=== PATIENT | female | born 1990 | race African-American/Black ===

== ENCOUNTER 2025-04-27 12:47 | Outpatient (REF) | payer OTHER, SELFPAY ==
[2025-04-28 07:38] LABS: Follicle Stimulating Hormone 1.8 mIU/mL
[2025-05-01 15:13] LABS: Testosterone, Free 6.0 pg/mL (0.1-6.4)
[2025-05-02 09:39] LABS: Estradiol Ultra Sensitive 345 pg/mL
== END 2025-04-27 12:48 | disposition home or self-care (01) ==
LOC: HO.LAB 12:47
PROVIDERS: Visit Provider Student in an Organized Health Care Education/Training Program
DX: N91.1 Secondary amenorrhea (principal); L68.0 Hirsutism; R79.89 Other specified abnormal findings of blood chemistry; Z32.00 Encounter for pregnancy test, result unknown
CPT/HCPCS: 36415; 82627; 82670; 83001; 83002; 83498; 84146; 84402; 84403; 84443; 84702; 99202

== ENCOUNTER 2025-04-27 12:47 | Outpatient (AMB) | payer OTHER, SELFPAY ==
--- OUTSIDE RECORDS SUMMARY | 2018-07-05 09:24 | XMS_ITS | Continuity of Care Document ---
Author Organization [facility] Address [address] [place] [address] Phone Care Team Providers Care Statistician Mathematical Name Role Phone John SOLIS Arsen Unavailable Unavailable Procedures Procedure Date RPR GC BY DNA AMP CT BY DNA AMP Advance Directives Directive Yes / No Effective Date File Name No Information Encounters Encounter Description Practice Location Reason(s) For Visit Diagnoses Date Provider Providers Copied on Encounter [facility] , [address] [place], [place], [id number], tel:[phone] [facility] Lab - [facility] Encounter for screening for infections with predominantly sexual mode of transmission John Thornton. [address] [place], [place], [id number], . tel:[phone] Family History Family Member Type Diagnosis Age At Onset No Information Payers Payer name Insurance type Covered alliance party ID Authoriza tion(s) No Information Social [...]
[2025-04-27 12:50] VITALS: BP 106/62; PULSE 81; O2SAT 99; BMI 28.5
--- NOTE | 2025-04-27 12:50 | A.OFFVIS_ITS ---
Vital Signs 3 04/27/25 12:50 Height 5 ft 3 in Weight 160 lb 14.999 oz BMI 28.5 BP 106/62 Position Sitting Pulse 81 Pulse Source Pulse Oximeter Pulse Oximetry (%) 99 Oxygen Delivery Method Room Air Intake Visit Reasons: Elevated testosterone Intake Note: New patient present today for Elevated testosterone office visit. L Inspector Process Required: No Accompanied by: Self / Same As Patient Allergies No Known Allergies Allergy (Verified 04/27/25 12:51) Medication List - Last Reconciled 04/27/25 by Galina Beth MD valacyclovir 500 mg PO BID PRN HPI Comments Details: 35-year-old female here today for initial evaluation of secondary amenorrhea and elevated testosterone levels. Describes she has always has irregular periods since high school 2007 Periods every 3 to 6 months , 2-3 cycles per month Does complain of excessive hair on face, no voice changes, no clitoromegaly presents with no complaints of hirsutism, hair loss in temples . currently on acne She has a history hyperlipidemia, no HTN or prediabetes. PCOS is described as mild, moderate or severe. Menarche:15 LMP: November or December 2024 history:no Normal pubertal milestones of pubarche and thelarche Not currently sexually active, has a boyfriend. 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 Never smoker Alcohol : never Drug use : never Physical exam General: sitting comfortably in no acute distress HEENT: normocephalic/atraumatic, Neck: supple, symmetrical, no thyromegaly , no dorsocervical or supraclavicular fat pads Cardiac: normal heart sounds Pulm: normal breath sounds B/L, no added breath sounds Abd: not distended, no tenderness Extremities: no edema, no signs of myxedema [facility] Medical History (Updated 04/27/25 @ 13:43 by Galina Beth MD) Elevated testosterone level in female Secondary amenorrhea Surgical History (Updated 04/24/25 @ 12:27 by KESHA Gloria) No pertinent past surgical history Family History (Updated 04/27/25 @ 12:52 by KESHA Engel) Father No problems noted. Mother Family history of high blood pressure Social History (Updated 04/24/25 @ 12:29 by KESHA Gloria) Alcohol intake: never Patient Tobacco Use Status: Never used Tobacco Physical Exam Vital Signs: Last Vital Signs Pulse 81 04/27/25 12:50 BP 106/62 04/27/25 12:50 Pulse Ox 99 04/27/25 12:50 Oxygen Delivery Method Room Air 04/27/25 12:50 BMI result Body Mass Index 28.5 Assessment & Plan Assessment & Plan (1) Secondary amenorrhea: Code(s): N91.1 - Secondary amenorrhea Category: Medical Plan: 35-year-old female coming in today for initial evaluation of secondary amenorrhea and elevated testosterone levels. Labs from December 2024 showed testosterone of 118 ng/dL, normal thyroid function, normal estradiol, FSH and LH. She has had no periods for the last 4-5 months, last period was in November or December 2024. Reports irregular periods since menarche/high school. She only has 2-3 cycles per year without oral contraceptive pills. Was on oral contraceptive pills from 3855-3198 which regulated her periods. She reports mood changes with the OCPs and is not excited about going back on them. I discussed with the patient that 1st we will evaluate her secondary amenorrhea/irregular periods with some further testing including test, prolactin levels, we will repeat FSH, LH, estradiol and TSH, we will also order a pelvic ultrasound. We will also check 17 hydroxyprogesterone levels to rule out CAH. At this point given normal breast development and uterus present given prior history of pre records, most common differentials include PCOS, hypothermic dysfunction, ovarian failure, pituitary dysfunction, hypothalamic dysfunction., . She denies currently being sexually active but we will check a test. She is doing a healthy amount of exercise, nothing excessive, no excessive stressors to suggest hypothalamic dysfunction. FSH and LH on labs from December 2024 were not elevated enough to suggest ovarian failure plus estradiol was also normal. No prolactin levels checked, could potentially have pituitary etiology, we will check prolactin levels. Most common reason for irregular menstruation, signs of hyperandrogenism lead to PCOS, however this is a diagnosis of exclusion. Once we have done the above workup, if she does necktie turner to have PCOS. I reviewed with the patient the implications of polycystic ovarian syndrome in terms of 1) reproductive health (increased risk of infertity, miscarriage), 2) metabolic issues (type 2 diabetes, hypertension, dyslipidemia, cardiovascular disease) and 3) hyperandrogenism (acne, hirsuitism, male pattern hair loss). We reviewed that weight loss in overweight woman can help improve these morbidities, but often woman with PCOS do need further assistance with fertility using metformin plus clomiphene or letrazole. She is not interested in at this time. She is not bothered by excessive facial hair, had discuss with her briefly that is spironolactone could be an option in the future but for now she is okay with maintaining her cosmetic measures. She has a history of hyperlipidemia, no history of hypertension or diabetes, discussed with her importance of maintaining good diet with lean protein and less fats. We discussed importance of maintaining weight loss measures, she is doing very well in terms of maintaining good exercise regimen. We will focus more on this in the following visits if she turns out to have PCOS. I also discuss with the her that women with PCOS need regulation of the menstrual cycles as it is important to have a menstrual cycle at least every 3 months to prevent endometrial hyperplasia and risk of endometrial cancer. She is not very excited about the idea of going back on oral contraceptive pills. I will place OBGYN referral for them to discuss further measures with her. We can also consider putting her on metformin to see if it helps with regulating her periods. Plan: -OBGYN referral placed -ordered FSH, LH, estradiol, TSH with reflex free T4, 17 hydroxyprogesterone levels, prolactin levels, test, testosterone levels -ordered ultrasound of the pelvis transvaginal -follow up in 6 weeks to discuss results (2) Elevated testosterone level in female: Code(s): R79.89 - Other specified abnormal findings of blood chemistry Category: Medical Plan: See above Plan I spent 45 minutes in reviewing the record, seeing the patient and documenting in the medical record. Orders: Orders 2 Prolactin Today L68.0 - Hirsutism, N91.1 - Secondary amenorrhea DHEA Sulfate Today L68.0 - Hirsutism, N91.1 - Secondary amenorrhea US pelvic and transvaginal Today L68.0 - Hirsutism, N91.1 - Secondary amenorrhea Testosterone, Free/Total Today L68.0 - Hirsutism, N91.1 - Secondary amenorrhea HCG Quantitative Today N91.1 - Secondary amenorrhea Lutenizing Hormone Today N91.1 - Secondary amenorrhea 17 Hydroxyprogesterone Today L68.0 - Hirsutism, N91.1 - Secondary amenorrhea TSH reflex Free T4 Today N91.1 - Secondary amenorrhea Follicle Stimulating Hormone Today N91.1 - Secondary amenorrhea Estradiol Ultra Sensitive Today N91.1 - Secondary amenorrhea Referrals 2 GLASS SILVERER Referral N91.1 - Secondary amenorrhea Patient Instructions: do blood work Do ultrasound pelvis Referral to obgyn placed Continue maintaining active exercise regimen Coding Level of Care Code New Pt Level 4 (62725) Diagnoses Secondary amenorrhea N91.1 Elevated testosterone level in female R79.89 Time Spent (min) 45
== END 2025-04-27 13:32 | disposition home or self-care (01) ==
LOC: HO.ENCR 12:48
PROVIDERS: Visit Provider Student in an Organized Health Care Education/Training Program
DX: N91.1 Secondary amenorrhea (principal); R79.89 Other specified abnormal findings of blood chemistry
CPT/HCPCS: 99204

== ENCOUNTER 2025-05-07 07:41 | Outpatient (REF) | payer OTHER, SELFPAY ==
[2025-05-07 09:02] LABS: Anion Gap 8 (12-20); Blood Urea Nitrogen 12 mg/dL (9-16); Calcium 9.1 mg/dL (8.4-10.2); Carbon Dioxide 24 mmol/L (22-29); Chloride 112 mmol/L (96-108); Estimated Glomerular Filt Rate > 60; Potassium 4.0 mmol/L (3.3-5.1); Sodium 140 mmol/L (135-145)
[2025-05-15 01:05] LABS: 11-Deoxycortisol, LC/MS <20 ng/dL
== END 2025-05-07 07:42 | disposition home or self-care (01) ==
LOC: HO.LAB 07:41
PROVIDERS: PCP Registered Nurse; Visit Provider Student in an Organized Health Care Education/Training Program
DX: N91.1 Secondary amenorrhea (principal); R79.89 Other specified abnormal findings of blood chemistry
CPT/HCPCS: 36415; 80048; 82024; 82088; 82157; 82533; 82627; 82634; 83498; 84244

== ENCOUNTER 2025-07-02 16:30 | Outpatient (REF) | payer OTHER, SELFPAY ==
--- OUTSIDE RECORDS SUMMARY | 2018-07-05 08:24 | XMS_ITS | Continuity of Care Document ---
Author Organization [facility] Address [address] [place] [address] Phone Care Team Providers Care Data Technical Lead Name Role Phone John SOLIS Arsen Unavailable Unavailable Procedures Procedure Date RPR GC BY DNA AMP CT BY DNA AMP Advance Directives Directive Yes / No Effective Date File Name No Information Encounters Encounter Description Practice Location Reason(s) For Visit Diagnoses Date Provider Providers Copied on Encounter [facility] , [address] [place], [place], [id number], tel:[phone] [facility] Lab - [facility] Encounter for screening for infections with predominantly sexual mode of transmission John Thornton. [address] [place], [place], [id number], . tel:[phone] Family History Family Member Type Diagnosis Age At Onset No Information Payers Payer name Insurance type Covered constitution party ID Authoriza tion(s) No Information Social History Type Description Quantity Date Captured Comments Sex Female Smoking Status No Information Chief Complaint And Reason For Visit No Information Reason For Referral Reason For Referral No Information Plan Of Treatment Date Type Action Status Future Order: Lab Order RPR W/re flex FTA (RPRREFLEX), Appointment on: Ordered Future Order: Lab Order Gonorrhe a NAAT (Amp) (GONRHEA), Appointment on: Ordered Future Order: Lab Order Chlamydi a NAAT (CHLAMP), Appointment on: Ordered History Of Present Illness Encounter Date Complaint History Of Prese nt Illness No Information Functional Status Date Functional Assessmen t No Information Instructions Date Instruction Additional Infor mation No Information Assessments Type Assessment Date assessment Encounter for screen ing for infections with predominantly sexual mode of transmission Patient Care Teams Name Effective Dates (start - stop) Status Members No Information
--- NOTE | ~2025-07-02 | US_ITS ---
EXAMINATION: US PELVIS CLINICAL INFORMATION: Hirsutism COMPARISON: None available. TECHNIQUE: Ultrasound of the pelvis is performed using both transabdominal and transvaginal transducers along with Doppler. Transvaginal imaging is performed due to inadequate visualization transabdominally. FINDINGS: Uterus: The uterus is anteverted and measures 10.5 x 4.0 x 4.4 cm. Small amount of free fluid is present. The double wall endometrial thickness is 9 mm. The uterus is smooth in contour and has normal myometrial echogenicity. No visible fibroid. Adnexa: Both ovaries are visualized. There is normal color flow to the adnexa. There is no ovarian torsion. There is no pelvic ascites or fluid collection. Right ovary measures 3.0 x 2.4 x 1.5 cm. Numerous small peripheral follicles are present. Left ovary measures 3.6 x 2.1 x 2.0 cm. Small peripheral follicles are present. US/US pelvic and transvaginal IMPRESSION: Small peripheral follicles are present in the ovaries. However, the ovaries are not enlarged. The finding is nonspecific. There is a physiologic volume of free fluid in the cul-de-sac. Electronically signed by: Dale Mullins MD 07/02/2025 05:00 PM EST
== END 2025-07-02 16:31 | disposition home or self-care (01) ==
LOC: HO.US 16:30
PROVIDERS: Visit Provider Student in an Organized Health Care Education/Training Program
DX: L68.0 Hirsutism (principal); N91.1 Secondary amenorrhea
CPT/HCPCS: 76830; 76856

== ENCOUNTER → 2025-07-02 16:34 | Outpatient (BNV) | payer OTHER, SELFPAY | PROVIDERS: Visit Provider Radiology Diagnostic Radiology | DX: N83.02 Follicular cyst of left ovary (principal); N83.01 Follicular cyst of right ovary | CPT/HCPCS: 76830; 76856 ==

== ENCOUNTER 2025-07-07 12:44 | Outpatient (AMB) | payer OTHER, SELFPAY ==
--- NOTE | 2025-07-07 12:47 | A.OFFVIS_ITS ---
Vital Signs 07/07/25 13:00 Height 5 ft 3 in Weight 160 lb 14.999 oz BMI 28.5 BP 100/60 Blood Pressure Location Rt brachial Position Sitting Pulse 99 Pulse Source Pulse Oximeter Pulse Oximetry (%) 81 L Oxygen Delivery Method Room Air Intake Visit Reasons: Secondary amenorrhea Intake Note: Patient presents here today for a follow-up on Secondary Amenorrhea: Patient last seen by DR Galina Beth MD * Pelvic Transvaginal Ultrasound: Completed on 07/02/2025 * Endocrine Hormone Panel Blood Work: Completed on 04/27/2025 Steam Setter Required: No Accompanied by: Self / Same As Patient Allergies No Known Allergies Allergy (Verified 07/07/25 12:48) Medication List - Last Reconciled 07/07/25 by Madhuri Boyle MD semaglutide (weight loss) (Wegovy) 0.25 mg (0.5 mL) subcut QWEEK valacyclovir 500 mg PO BID PRN HPI Comments Details: 35-year-old female here today for initial evaluation of secondary amenorrhea and elevated testosterone levels. Describes she has always has irregular periods since high school 2007 Periods every 3 to 6 months , 2-3 cycles per month Does complain of excessive hair on face, no voice changes, no clitoromegaly presents with no complaints of hirsutism, hair loss in temples . currently on acne She has a history hyperlipidemia, no HTN or prediabetes. PCOS is described as mild, moderate or severe. Menarche:15 LMP: November or December 2024 history:no Normal pubertal milestones of pubarche and thelarche Not currently sexually active, has a boyfriend. 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 She reports having a period April and May, fairly similar to her normal periods. She has increased physical activity, and eats fairly healthy (only 1 meal a day) She is not actively looking from , but she would be OK it is happens Labs Laboratory Tests 04/27/25 05/07/25 14:06 08:05 Sodium 140 Potassium 4.0 Chloride 112 H Carbon Dioxide 24 Anion Gap 8 L BUN 12 Creatinine 0.86 Estimated GFR > 60 Random Glucose 95 Calcium 9.1 Renin 0.18 L Aldosterone 4 TSH 0.97 Estradiol Ultra LCMSMS 345 FSH 1.8 Luteinizing Hormone 5.4 Prolactin 9.1 Total Testosterone 89 H Fr Testosterone Dialys 6.0 Androstenedione 180 DHEA Sulfate 47 44 Beta HCG, Quant < 2 Random Cortisol 7.9 ACTH 20 11-Deoxycortisol LC-MS <20 17-Hydroxyprogesterone 62 Collection Date: 01/22/2025 Test Result Reference Interval Flag WBC (x10?/uL) 4.2 3.4 ? 10.8 RBC (x10?/uL) 4.16 3.77 ? 5.28 Hemoglobin (g/dL) 13.2 11.1 ? 15.9 Hematocrit (%) 39.3 34.0 ? 46.6 MCV (fL) 95 79 ? 97 MCH (pg) 31.7 26.6 ? 33.0 MCHC (g/dL) 33.6 31.5 ? 35.7 RDW (%) 12.2 11.7 ? 15.4 Platelets (x10?/uL) 293 150 ? 450 Neutrophils (%) 37 Lymphocytes (%) 49 Monocytes (%) 9 Eosinophils (%) 4 Basophils (%) 1 Absolute Neutrophils (x10?/uL) 1.6 1.4 ? 7.0 Absolute Lymphocytes (x10?/uL) 2.1 0.7 ? 3.1 NLR 0.8 0.0 ? 2.9 Comprehensive Metabolic Panel (CMP) Test Result Reference Interval Flag Glucose (mg/dL) 84 70 ? 99 BUN (mg/dL) 10 6 ? 20 Creatinine (mg/dL) 1.01 0.57 ? 1.00 High eGFR (mL/min/1.73m?) 74 >59 BUN/Creatinine Ratio 10 9 ? 23 Sodium (mmol/L) 142 134 ? 144 Potassium (mmol/L) 4.3 3.5 ? 5.2 Chloride (mmol/L) 108 96 ? 106 High CO?, Total (mmol/L) 21 20 ? 29 Calcium (mg/dL) 9.4 8.7 ? 10.2 Protein, Total (g/dL) 7.9 6.0 ? 8.5 Albumin (g/dL) 4.6 3.9 ? 4.9 Globulin, Total (g/dL) 3.3 1.5 ? 4.5 Bilirubin, Total (mg/dL) 1.0 0.0 ? 1.2 Alkaline Phosphatase (IU/L) 100 44 ? 121 AST (SGOT) (IU/L) 25 0 ? 40 ALT (SGPT) (IU/L) 17 0 ? 32 Hepatic Function Panel Test Result Reference Interval Flag Bilirubin, Direct (mg/dL) 0.28 0.00 ? 0.40 Lipid Panel Test Result Reference Interval Flag Cholesterol, Total (mg/dL) 207 100 ? 199 High Triglycerides (mg/dL) 45 0 ? 149 HDL Cholesterol (mg/dL) 70 >39 VLDL Cholesterol Enmanuel (mg/dL) 8 5 ? 40 LDL Chol Calc (NIH) (mg/dL) 129 0 ? 99 High Thyroid Panel With TSH Test Result Reference Interval Flag TSH (uIU/mL) 0.899 0.450 ? 4.500 Thyroxine (T4) (ug/dL) 6.7 4.5 ? 12.0 T3 Uptake (%) 27 24 ? 39 Free Thyroxine Index 1.8 1.2 ? 4.9 Vitamin B12 and Folate Test Result Reference Interval Flag Vitamin B12 (pg/mL) 622 232 ? 1245 Folate (Folic Acid), Serum (ng/mL) >20.0 >3.0 Hemoglobin A1c Test Result Reference Interval Flag Hemoglobin A1c (%) 5.1 4.8 ? 5.6 Hormonal Panel Test Result Reference Interval Flag DHEA, Serum (ng/dL) 230 31 ? 701 Testosterone (ng/dL) 118 8 ? 60 High LH (mIU/mL) 21.9 (Follicular: 2.4?12.6) High FSH (mIU/mL) 6.7 (Follicular: 3.5?12.5) Estradiol and Vitamin D Test Result Reference Interval Flag Estradiol (pg/mL) 60.4 (Follicular: 12.5?166.0; Luteal: 43.8?211.0) Vitamin D, 25-Hydroxy (ng/mL) 73.0 30.0 ? 100.0 Estrone and Ferritin Test Result Reference Interval Flag Estrone, Serum (pg/mL) 54 27 ? 231 Ferritin (ng/mL) 86 15 ? 150 Imaging: Pelvic ultrasound 07/02/2025 FINDINGS: Uterus: The uterus is anteverted and measures 10.5 x 4.0 x 4.4 cm. Small amount of free fluid is present. The double wall endometrial thickness is 9 mm. The uterus is smooth in contour and has normal myometrial echogenicity. No visible fibroid. Adnexa: Both ovaries are visualized. There is normal color flow to the adnexa. There is no ovarian torsion. There is no pelvic ascites or fluid collection. Right ovary measures 3.0 x 2.4 x 1.5 cm. Numerous small peripheral follicles are present. Left ovary measures 3.6 x 2.1 x 2.0 cm. Small peripheral follicles are present. IMPRESSION: Small peripheral follicles are present in the ovaries. However, the ovaries are not enlarged. The finding is nonspecific. There is a physiologic volume of free fluid in the cul-de-sac. [facility] Medical History Elevated testosterone level in female Secondary amenorrhea Surgical History No pertinent past surgical history Family History Father No problems noted. Mother Family history of high blood pressure Social History Alcohol intake: never Patient Tobacco Use Status: Never used Tobacco Physical Exam Vital Signs: Last Vital Signs Pulse 99 07/07/25 13:00 BP 100/60 07/07/25 13:00 Pulse Ox 81 L 07/07/25 13:00 Oxygen Delivery Method Room Air 07/07/25 13:00 BMI result Body Mass Index 28.5 Assessment & Plan Assessment & Plan (1) Elevated testosterone level in female: Code(s): R79.89 - Other specified abnormal findings of blood chemistry Category: Medical (2) Secondary amenorrhea: Code(s): N91.1 - Secondary amenorrhea Category: Medical Plan: 35-year-old female coming in today for initial evaluation of secondary amenorrhea and elevated testosterone levels. Labs from December 2024 showed testosterone of 118 ng/dL, normal thyroid function, normal estradiol, FSH and LH. She has had no periods for the last 4-5 months, last period was in November or December 2024. Reports irregular periods since menarche/high school. She only has 2-3 cycles per year without oral contraceptive pills. Was on oral contraceptive pills from 6460-3728 which regulated her periods. She reports mood changes with the OCPs and is not excited about going back on them. Her labs are consistent with hyperandrogenism, likely secondary to PCOS given menstrual irregularities and elevated testoterone levels and hyperandrogenic symptoms (hirsutism). She is not interested in at this time. She is not bothered by excessive facial hair, had discuss with her briefly that is spironolactone could be an option in the future but for now she is okay with maintaining her cosmetic measures. We discuss with the her that women with PCOS need regulation of the menstrual cycles as it is important to have a menstrual cycle at least every 3 months to prevent endometrial hyperplasia and risk of endometrial cancer. She is adamant on not taking oral contraceptive pills. We also offered Metformin but she is not sure if she would like to pursue this treatment. We also discussed the metabolic risks of untreated PCOS, including HTN, CV disease and stroke. Plan: She will research before she could start Metfomin She declined seen a security operations engineer Advise moderate exercise, at least 150 min/wk She agreed to try Wegovy, pending insurance approval Follow up in 4 months Plan 30 minutes spent reviewing previous records, labs, imaging, education and documenting in the chart Medications: New semaglutide (weight loss) (Wegovy) administer weeks 1 through 4 of therapy 0.25 mg (0.5 mL) subcut QWEEK 2 mL 1RF E28.2 - Polycystic ovarian syndrome Patient Instructions: Start Ozempic 0.25 mg weekly for 4 weeks, his is a starting dose to help your body adjust and minimize stomach side effects. After 4 weeks, increase to 0.5 mg once weekly. If additional blood sugar control is needed after at least 4 weeks on 0.5 mg, your provider may increase the dose to 1 mg once weekly. Most common side effects of Ozempic (semaglutide) are gastrointestinal, including nausea, vomiting, diarrhea, constipation, and abdominal pain. These symptoms are usually mild to moderate, tend to occur during dose escalation, and often improve over time. Other possible side effects include headache, dizziness, and fatigue. Hypoglycemia is uncommon unless Ozempic is used with insulin or sulfonylureas. Rare but serious risks include pancreatitis, gallbladder disease, and, in patients with significant vomiting or diarrhea, dehydration and possible kidney injury. Injection site reactions are rare and typically mild. I emphasized the importance of gradual dose escalation to minimize GI side effects and advised the patient to report any severe or persistent symptoms. Coding Level of Care Code Est Pt Level 4 (57202) Complex visit Add On G2211 Diagnoses Elevated testosterone level in female R79.89 Secondary amenorrhea N91.1
[2025-07-07 13:00] VITALS: BP 100/60; PULSE 99; O2SAT 81; BMI 28.5
== END 2025-07-07 14:26 | disposition home or self-care (01) ==
LOC: HO.ENCR 12:44
PROVIDERS: PCP Registered Nurse; Visit Provider Student in an Organized Health Care Education/Training Program
DX: R79.89 Other specified abnormal findings of blood chemistry (principal); N91.1 Secondary amenorrhea
CPT/HCPCS: 99214

== ENCOUNTER → 2025-07-07 12:44 | Outpatient (BNVA) | payer OTHER, SELFPAY | PROVIDERS: PCP Registered Nurse; Visit Provider Student in an Organized Health Care Education/Training Program | DX: N91.1 Secondary amenorrhea (principal); L68.0 Hirsutism | CPT/HCPCS: 99212 ==